=== PATIENT | male | born 1970 | race Caucasian/White ===

== ENCOUNTER 2016-05-12 05:33 | Day surgery (SDC) | payer BC ==
[~2016-05-12] VITALS: Ht 175.3 cm; Wt 108.0 kg
--- NOTE | ~2016-05-12 | O ---
[facility] [place] [address] OPERATIVE REPORT Name: MARY JO GUPTA Room #: DEP [facility]..#: [id number] Admission: 05/12/16 Attend Phys: Boris Gray MD Discharge: 05/12/16 Date of : 70 Report #: [id number] THIS REPORT FOR: //name// CC: Boris Gray [facility] physician/PCP DATE OF SERVICE: 05/12/2016 PREOPERATIVE DIAGNOSIS: Herniated lumbar disk L5-S1, left, with radiculopathy. POSTOPERATIVE DIAGNOSIS: Herniated lumbar disk L5-S1, left, with radiculopathy. PROCEDURE: Decompressive laminectomy and diskectomy, L5-S1, left. SURGEON: Boris Gray MD. INDICATIONS: This 45-year-old gentleman complains of progressive and persistent low back pain and radiating left leg pain over the past 6 months. Clinical evaluation and MRI scan confirmed degenerative and herniated disk at L5-S1 towards the left side with significant crowding of the canal and impingement on the left S1 nerve root. He has tried conservative measures including anti-inflammatories, oral medications, and epidural injections without benefit. He has elected to go ahead with surgical laminectomy and diskectomy at this time. DESCRIPTION OF PROCEDURE: The patient was taken to the operating room, where he was placed under general anesthesia. Prophylactic intravenous antibiotics were administered. He was positioned prone and low back was meticulously prepped and draped. A preoperative supervisor particleboard x-ray was obtained, and the appropriate level was identified. A skin incision was made just left of the midline overlying the L5-S1 interspace. This was carried through subcutaneous tissues, fascia, and the paraspinal muscles were retracted laterally, exposing the lamina of L5 and S1. The ligamentum was excised and a small laminotomy created in the inferior aspect of L5 and the superior aspect of S1. This was extended out laterally to the facet joint. Satisfactory exposure was established to have good visualization of the dura and the nerve root. The nerve root was retracted toward the midline with some difficulty, as there was some fibrosis and scarring. The underlying disk was found to be quite prominent with an obvious herniated fragment. This was freed up and from the nerve root, and the nerve root carefully protected toward the midline. The canal was gently protected with a cottonoids both proximally and distally, allowing good dry exposure of the annulus and disk. There was still a bit of attenuated annulus remaining, and this was easily penetrated with a small probe. A large fragment of loose degenerative disk debris came forth. This was removed with pituitary rongeurs. The canal was then entered with multiple pituitary rongeurs, and a large amount of loose degenerative disk debris was evacuated. Care was taken to [address] [address] OPERATIVE REPORT Name: MARY JO GUPTA Room #: DEP [facility] M.R.#: [id number] Admission: 05/12/16 Attend Phys: Boris Gray MD Discharge: 05/12/16 Date of : 70 Report #: [id number] extend both across the midline out toward the right side and also on to the annulus and out toward the far lateral portion of the disk. This seemed to decompress the disk quite nicely. Thorough decompression was performed and excellent improvement in the disk bulge and decompression of the canal was established. The canal was carefully palpated proximally, distally, and across the midline. No other fragments were identified. The nerve root was then inspected and found to be moderately erythematous, and slightly deformed and narrowed, consistent with some chronic compression. At this point; however, there was no further pressure on the nerve root and seemed to be freed up nicely. It was traced out to the neural foramen, distally and seemed to be freed up well. At this point, the wound was gently packed with several cottonoids and Gelfoam and thrombin, until the epidural veins have all nicely closed. The wound appeared to be dry. The canal was nicely decompressed. At this point, 40 mg of Depo-Medrol were left in the epidural space surrounding the nerve root. A small fragment of Gelfoam soaked in thrombin was left over the laminotomy defect. The fascia was then closed using multiple #1 Vicryl sutures. The subcutaneous tissues were closed using 2-0 Monocryl. The skin was closed using a 2-0 Prolene. A sterile dressing was applied. The patient was awakened and returned to the recovery room in good condition. <ELECTRONICALLY SIGNED> By: Boris Gray MD 05/15/16 1050 [id number] Boris Gray MD /nt
--- NOTE | ~2016-05-12 | S ---
[facility] [place] [address] SURGICAL PATH RPT PROCEDURE Name: LALO GUPTA Room #: DEP [facility] M.R.#: [id number] Admission: 05/12/16 Date of : 70 Discharge: 05/12/16 Report #: [id number] Path Case #: [id number] PATHOLOGY REPORT COLLECTION DATE: 05/12/2016 RECEIVED DATE: 05/12/2016 SUBMITTING PHYS: Dr. Boris Gray OTHER PHYS: SPECIMEN(S) RECEIVED: A.L5-S1 disc * * * * * * * * * * * * FINAL DIAGNOSIS: "L5-S1 disc," discectomy: - Intervertebral disc material with reactive changes. (CLW:; d/t: 05/13/16) PATHOLOGIST: Amelia Baltazar M.D. REPORT ELECTRONICALLY SIGNED BY: Amelia Baltazar M.D. DATE/TIME: 05/13/2016 23:07 * * * * * * * * * * * * GROSS PATHOLOGY: Received in formalin labeled "Lalo Gupta and L5-S1 disc," are multiple pieces of red-choi to white-choi, rubbery, gritty, and glistening fibrous tissue admixed with possible bone measuring 3.8 x 3.5 x 1.0 cm in aggregate dimensions. The tissue is submitted representatively in cassette A1, following decalification. (TTL; 05/12/2016) CLINICAL HISTORY: Left L5, S1 herniated disc INITIAL CPT CODE(S): A; 88830, 55580 Professional services performed by [facility] at [facility] [address], [place] [address] Technical services performed by [facility] at [address] [place] [id number]. [facility] [address] [place] [address] SURGICAL PATH RPT PROCEDURE Name: LALO GUPTA Room #: DEP [facility] Yoni#: [id number] Admission: 05/12/16 Date of : 70 Discharge: 05/12/16 Report #: [id number] Path Case #: [id number] [facility] [address] [address] PHONE: [phone] DIRECTOR: Shakir Orosco M.D. * * * END OF REPORT * * *
[~2016-05-12 05:33] MED LIST: APAP500 PO
[2016-05-12 09:34] VITALS: BP 134/81
[2016-05-12 10:11] VITALS: BP 134/81
== END 2016-05-12 11:00 | disposition home or self-care (01) ==
LOC: OR 05:33 → TBA 05:33 → OR 10:09
DX: M51.16 Intervertebral disc disorders with radiculopathy, lumbar region (principal); F17.210 Nicotine dependence, cigarettes, uncomplicated; K21.9 Gastro-esophageal reflux disease without esophagitis; G47.33 Obstructive sleep apnea (adult) (pediatric)
CPT/HCPCS: 50010; 50101; 50402; 50704; 50850; 56525; 62110; 62900; 70005